=== PATIENT | female | born 1945 | race Caucasian/White ===

== ENCOUNTER 2016-09-02 11:10 | Emergency (ER) | payer MEDICARE ==
[2016-09-02 13:25] VITALS: BP 129/66
--- NOTE | 2016-09-02 13:51 | UC ---
Back Pain HPI - HPI Summary HPI Summary: FOUR WEEKS OF LEFT LOW BACK PAIN AND MUSCLE SPASM. OCCASIONALLY PAIN RADIATES INTO LEFT HIP LEFT ABDOMEN.NO FEVER. NO ABDOMINAL PAIN PRESENTLY. - History of Current Complaint Chief Complaint: UCBackPain Stated Complaint: LOWER BACK PAIN Time Seen by Provider: 09/02/16 13:04 Hx Obtained From: Patient Onset/Duration: Gradual Onset, Lasting Weeks, Still Present Timing: Lasting Weeks Severity Initially: Mild Severity Currently: Moderate Character: Aching, Spasmodic Aggravating: Movement, Lifting, Bending Alleviating: Rest, Position Associated Signs And Symptoms: Positive: Pain with Weight Bearing. Negative: Abdominal Pain, Flank Pain, Bladder Incontinence, Bowel Incontinence - Risk Factors AAA Risk Factors: Negative TAD Risk Factors: Negative Cauda Equina Risk Factors: Negative Epidural Abscess Risk Factors: Negative - Allergies/Home Medications Allergies/Adverse Reactions: Allergies Allergy/AdvReac Type Severity Reaction Status Date / Time Oxycodone [From Oxycontin] Allergy Unknown Verified 06/12/14 09:59 Reaction Details Home Medications: Home Medications Aleve 1 tab PO DAILY 09/02/16 [History] PMH/Surg Hx/FS Hx/Imm Hx Previously Healthy: Yes - Surgical History Surgical History: Yes Surgery Procedure, Year, and Place: benign ovarian cysts 1995 AND HYSTERECTOMY, [place]. HERNIA REPAIR 1987, [place],. TEETH EXTRACTION. TONSILECTOMY A CHILD - Family History Known Family History: Positive: Renal Disease - OLDER HALF-BROTHER KIDNEY STONES - Social History Occupation: Retired Alcohol Use: Occasionally Alcohol Amount: 1 Q 2 WEEKS Substance Use Type: None Smoking Status (MU): Former Smoker Type: Cigarettes Amount Used/How Often: PACK A DAY Have You Smoked in the Last Year: No When Did the Patient Quit Smoking/Using Tobacco: 14 YRS AGO Review of Systems Constitutional: Negative Skin: Negative Eyes: Negative ENT: Negative Respiratory: Negative Cardiovascular: Negative Gastrointestinal: Negative Genitourinary: Negative Motor: Negative Neurovascular: Negative Musculoskeletal: Arthralgia, Myalgia Neurological: Negative Psychological: Negative All Other Systems Reviewed And Are Negative: Yes Physical Exam Triage Information Reviewed: Yes Appearance: Well-Appearing, No Pain Distress, Well-Nourished Vital Signs: Initial Vital Signs Temp 99.1 F 09/02/16 11:51 Pulse 80 09/02/16 11:51 Resp 18 09/02/16 11:51 BP 140/76 09/02/16 11:51 Pulse Ox 97 09/02/16 11:51 Vital Signs Reviewed: Yes Eye Exam: Normal ENT Exam: Normal ENT: Positive: Normal ENT inspection, Hearing grossly normal, Pharynx normal, TMs normal Dental Exam: Normal Neck exam: Normal Neck: Positive: Supple, Nontender, No Lymphadenopathy Respiratory Exam: Normal Respiratory: Positive: Chest non-tender, Lungs clear, Normal breath sounds, No respiratory distress, No accessory muscle use Cardiovascular Exam: Normal Cardiovascular: Positive: RRR, No Murmur, Pulses Normal Abdominal Exam: Normal Abdomen Description: Positive: Nontender - ABDOMEN NONTENDER, No Organomegaly, Soft Musculoskeletal: Positive: Strength Intact, ROM Intact, No Edema, Other: - PALPABLE MUSCLE SPASMS LEFT LOWER BACK Neurological Exam: Normal Psychological Exam: Normal Skin Exam: Normal Back Pain Course/Dx - Differential Dx/Diagnosis Differential Diagnosis/HQI/PQRI: Strain, Sprain Provider Diagnoses: LOW BACK PAIN/SPASM Discharge - Discharge Plan Condition: Stable Disposition: HOME Prescriptions: Cyclobenzaprine TAB* [Flexeril 10 MG TAB*] 10 mg PO BID PRN #10 tab PRN Reason: Spasms Patient Education Materials: Low Back Strain (ED), Muscle Spasm (ED) Referrals: Marino Damon MD [Primary Care Provider] - Additional Instructions: PHYSICAL THERAPY REFERRAL: You have been prescribed physical therapy. Treatments may include stretching, exercise, application of heat or cold, and other modalities. After an injury, PT can reduce swelling and pain. In recovery, PT is used to restore mobility and strength. Your specific treatment goals are: ___X__ Reduction of Swelling (EGS, US, ice as needed) __X___ Pain Reduction (EGS, US, ice as needed) ___X__ TENS Pack Fitting and Instruction Wound Hydrotherapy ____X_ Preservation of Mobility ___X__ Adventism of Mobility ___X__ Strength Adventism ___X__ Work or Sports Hardening This instruction sheet also serves as your PHYSICAL THERAPY REFERRAL! Please take it with you to the therapist, so he/she will be aware of your diagnosis and treatment plan. You may see the physical therapist of your choice for these treatments, but may wish to check with your insurance to be sure the provider you select is covered. It's important to see the doctor to whom you have been referred for follow up. Images Front/Back of Body, Lg ([place]): 1 - PALPABLE SPASMS HERE
== END 2016-09-02 13:50 | disposition home or self-care (01) ==
LOC: UCEAST 11:10
DX: M54.5 Low back pain (principal); M62.830 Muscle spasm of back; Z87.891 Personal history of nicotine dependence
CPT/HCPCS: 81003; 99212; G0463